=== PATIENT | female | born 1950 | race Caucasian/White ===

== ENCOUNTER 2019-03-17 08:54 | Outpatient (CLI) | payer MEDICARE ==
[2019-03-17 09:28] LABS: ALT (SGPT) 18 U/L (8-55); AST (SGOT) 15 U/L (5-34); Albumin 3.8 g/dL (3.4-4.8); Alkaline Phosphatase 119 U/L (40-110); Anion Gap 14 mmol/L (10-20); BUN (Urea Nitrogen) 51 mg/dL (9.8-20.1); Bilirubin, Direct 0.1 mg/dL (0.1-0.3); Bilirubin, Total Less than 0.2 mg/dL (0.2-1.2); Calc. Creatinine Clearance 0 mL/min (70-130); Calcium 9.3 mg/dL (7.8-10.44); Carbon Dioxide 19 mmol/L (23-31); Chloride 113 mmol/L (98-107); Cholesterol 320 mg/dl (< 200 Desired); Estimated GFR-MDRD 24; Glucose 248 mg/dL (80-115); HDL Cholesterol 46 mg/dL (>60 Neg Risk); Potassium 4.9 mmol/L (3.5-5.1); Protein, Total 7.4 g/dL (6.0-8.3); Sodium 141 mmol/L (136-145); Triglycerides 496 mg/dL (Less than 150)
[2019-03-17 09:33] LABS: #Basophils 0.1 thou/uL (0.0-0.2); #Eosinphils 0.2 thou/uL (0.0-0.7); #Lymphocytes 2.7 thou/uL (1.20-3.40); #Monocytes 0.8 thou/uL (0.11-0.59); #Neutrophils 4.3 thou/uL (1.40-6.50); %Basophils 1.3 % (0.0-1.0); %Eosinophils 2.2 % (0.0-10.0); %Lymphocytes 33.6 % (21.0-51.0); %Monocytes 10.1 % (0.0-10.0); %Neutrophils 52.8 % (42.0-75.0); Hemoglobin 10.7 g/dL (12.0-16.0); Mean Corpuscular HGB CONC 29.4 g/dL (32.0-36.0); Mean Corpuscular Hemoglobin 27.6 pg (27.0-31.0); Mean Corpuscular Volume 93.9 fL (78.0-98.0); Mean Platelet Volume 6.7 fL (7.4-10.4); Platelet Count 348 thou/uL (130-400); RBC Distribution Width 14.3 % (11.5-14.5); Red Blood Cell (RBC) Count 3.88 mill/uL (4.20-5.40); White Blood Cell (WBC) Count 8.1 thou/uL (4.8-10.8)
--- NOTE | 2019-03-17 10:19 | ULT ---
BILATERAL RENAL ULTRASOUND: HISTORY: Renal insufficiency. Chronic renal disease. FINDINGS: The right kidney measures 9.4 cm in length and the left kidney measures 10 cm in length. There are tw o cysts in the right kidney, measuring 2.3 and 2.6 cm respectively. No hydronephrosis is seen on eith er side. The urinary bladder is grossly unremarkable. IMPRESSION: Right renal cysts. POS: [facility]
[2019-03-17 10:22] LABS: LDL Cholesterol, Calculated 175 mg/dL
[2019-03-17 17:06] LABS: Hemoglobin A1c 7.5 % (4.0-6.0)
== END 2019-03-17 08:55 | disposition home or self-care (01) ==
LOC: MADLABBHPM 08:54
PROVIDERS: ATTEND Family Medicine
DX: E11.22 Type 2 diabetes mellitus with diabetic chronic kidney disease (principal); N18.3 Chronic kidney disease, stage 3 (moderate); E78.5 Hyperlipidemia, unspecified; N28.1 Cyst of kidney, acquired
CPT/HCPCS: 36415; 76770; 80048; 80061; 80076; 83036; 85025

== ENCOUNTER 2022-01-24 17:52 | Emergency (ER) | payer MEDICARE ==
[2022-01-24] MEDS ORDERED: Nitroglycerin 0.4 MG TAB 1 EACH ONE ×2 (18:04→19:02)
[2022-01-24] MEDS ORDERED: Morphine 4 MG/ML VIAL ONE ×3 (18:15→22:18)
[2022-01-24 18:17] LABS: #Basophils 0.1 thou/uL (0.0-0.2); #Eosinphils 0.3 thou/uL (0.0-0.7); #Monocytes 0.9 thou/uL (0.11-0.59); #Neutrophils 7.6 thou/uL (1.40-6.50); %Eosinophils 2.7 % (0.0-10.0); %Lymphocytes 25.3 % (21.0-51.0); %Monocytes 7.4 % (0.0-10.0); %Neutrophils 63.6 % (42.0-75.0); Mean Corpuscular HGB CONC 31.3 g/dL (32.0-36.0); Mean Corpuscular Hemoglobin 28.4 pg (27.0-31.0); Mean Corpuscular Volume 90.5 fL (78.0-98.0); Mean Platelet Volume 6.3 fL (7.4-10.4); Platelet Count 412 thou/uL (130-400); RBC Distribution Width 16.4 % (11.5-14.5); Red Blood Cell (RBC) Count 3.18 mill/uL (4.20-5.40)
[2022-01-24 18:31] LABS: Anion Gap 18 mmol/L (10-20); BUN (Urea Nitrogen) 69 mg/dL (9.8-20.1); Calc. Creatinine Clearance 0 mL/min (70-130); Calcium 8.7 mg/dL (7.8-10.44); Carbon Dioxide 14 mmol/L (23-31); Chloride 107 mmol/L (98-107); Estimated GFR 9; Glucose 145 mg/dL (83-110); Potassium 5.3 mmol/L (3.5-5.1); Sodium 134 mmol/L (136-145)
[2022-01-24] MEDS ORDERED: Aspirin Chewable 81 MG TAB ONE (19:02)
[2022-01-24] MEDS ORDERED: Nitroglycerin 2% Ointment 1 INCH/1 GM Packet ONE (19:20)
[2022-01-24 20:28] LABS: Troponin I 0.033 ng/mL (< 0.028)
[2022-01-24 21:11] LABS: Prothrombin Time 13.7 sec (12.0-14.7)
[2022-01-24 21:12] LABS: PTT 36.7 sec (22.9-36.1)
[2022-01-24] MEDS ORDERED: Heparin 25,000 units/D5W 500 ML ONE (21:21)
[2022-01-24] MEDS ORDERED: Heparin 10,000 UNITS/ 10 ML VIAL ONE (21:21)
== END 2022-01-24 23:02 | disposition short-term general hospital (02) ==
LOC: MADERS 17:52
DX: I21.4 Non-ST elevation (NSTEMI) myocardial infarction (principal); N17.9 Acute kidney failure, unspecified; I13.0 Hypertensive heart and chronic kidney disease with heart failure and stage 1 through stage 4 chronic kidney disease, or unspecified chronic kidney disease; E11.22 Type 2 diabetes mellitus with diabetic chronic kidney disease; N18.30 Chronic kidney disease, stage 3 unspecified; I50.9 Heart failure, unspecified; F17.210 Nicotine dependence, cigarettes, uncomplicated; Z79.899 Other long term (current) drug therapy
CPT/HCPCS: 71045; 80048; 83880; 84484; 85025; 85610; 85730; 93005; 96365; 96374; 96376; J1644; J2270; J7620

== ENCOUNTER 2023-03-13 12:08 | Emergency (ER) | payer MEDICARE, OTHER ==
[2023-03-13] MEDS ORDERED: Acetaminophen 500 MG TAB ONE (12:42)
== END 2023-03-13 13:04 | disposition home or self-care (01) ==
LOC: MADERS 12:08
DX: E11.22 Type 2 diabetes mellitus with diabetic chronic kidney disease (principal); I12.0 Hypertensive chronic kidney disease with stage 5 chronic kidney disease or end stage renal disease; N18.6 End stage renal disease; Z99.2 Dependence on renal dialysis; F17.210 Nicotine dependence, cigarettes, uncomplicated; Z79.899 Other long term (current) drug therapy
CPT/HCPCS: 72100